=== PATIENT | female | born 1935 | race Caucasian/White ===

== ENCOUNTER → 2017-11-14 | Outpatient (CLI) | payer OTHER ==
[~2017-11-14] MED LIST: ADULT LOW DOSE81 MG PO; CALCITONIN; FOLIC ACID1 MG PO; FOSAMAX5 MG; LEVOXYL50 MCG PO; SIMVASTATIN10 MG PO
== END ==
LOC: M.ULTRA 10:30
DX: R22.2 Localized swelling, mass and lump, trunk (principal)

== ENCOUNTER → 2018-08-02 | Outpatient (CLI) | payer OTHER | LOC: M.ULTRA 08-01 13:00 | DX: Z12.31 Encounter for screening mammogram for malignant neoplasm of breast (principal); Z78.0 Asymptomatic menopausal state; M85.89 Other specified disorders of bone density and structure, multiple sites; M25.431 Effusion, right wrist; R22.9 Localized swelling, mass and lump, unspecified ==

== ENCOUNTER → 2020-08-18 | Outpatient (CLI) | payer MEDICARE | LOC: M.RAD 08-05 12:20 | PROVIDERS: ATTEND Registered Nurse Diabetes Educator | DX: Z12.31 Encounter for screening mammogram for malignant neoplasm of breast (principal); Z78.0 Asymptomatic menopausal state; M85.88 Other specified disorders of bone density and structure, other site ==